=== PATIENT | male | born 1960 | race Two or more races ===

== ENCOUNTER 2016-10-24 06:00 | Inpatient (IN) | payer OTHER ==
[2016-10-24] VITALS (14 sets, daily range): BP systolic 99–121; BP diastolic 57–86
[~2016-10-24] VITALS: Ht 157.5 cm; Wt 81.6 kg
[2016-10-24] MEDS ORDERED: CELEBREX100 MG ORAL (06:47)
[2016-10-24] MEDS ORDERED: METFORMIN HCL500 M1 ORAL (06:54)
[2016-10-24] MEDS ORDERED: Heparin 5000 units/ml inj ONE (07:34)
--- NOTE | 2016-10-24 07:47 | Pre-Procedure Note/Attestation ---
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 I attest that, if there was a reasonable possibility of needing a blood transfusion, the patient (or the patient's legal promotional representative) was given the [place] [employer] standardized written summary, pursuant to the Bruce Shad Blood Safety Act ([place] Health and Safety Code # 1645, as amended). I attest that I re-evaluated the patient just prior to the surgery and that there has been no change in the patient's H&P, except as documented below: Kenneth Allen MD Oct 24, 2016 07:47
--- NOTE | 2016-10-24 08:09 | Anethesia Preoperative Eval ---
Anesthesia Pre-op PMH/ROS General Date of Evaluation: Oct 24, 2016 Time of Evaluation: 07:31 Anesthesiologist: Donato ASA Score: ASA 3 Mallampati Score Class I : Soft palate, uvula, fauces, pillars visible Class II: Soft palate, uvula, fauces visible Class III: Soft palate, base of uvula visible Class IV: Only hard plate visible Mallampati Classification: Class II Surgeon: Alejandro Diagnosis: Back Pain Surgical Procedure: ALIF L4-5, L5-S1, PSF L4-5, L5- S1 Anesthesia History: none Social History: current smoker Family History: no anesthesia problems Allergies: Coded Allergies: No Known Allergies (Unverified , 10/20/16) Medications: see eMAR Past Medical History Pulmonary: Reports: other - Smoker Endocrine: Reports: DM - FBS 99 Other: obesity - BMI 33 PSxH Narrative: L Shoulder Arthroscopy Anesthesia Pre-op Phys. Exam Physician Exam Last Vital Signs Date Time Temp Pulse Resp B/P Pulse Ox O2 Delivery O2 Flow Rate FiO2 10/24/16 07:16 98.0 60 20 117/67 96 Room Air Constitutional: NAD Neurologic: CN 2-12 intact Cardiovascular: RRR Respiratory: CTA Gastrointestinal: S/NT/ND Airway Exam Mallampati Score: Class II MO: limited ROM: limited Teeth: intact Anesthesia Pre-op A/P Risk Assessment & Plan Assessment: ASA 3 Plan: GA, BIS, Glidescope, A Line Status Change Before Surgery: No Pre-Antibiotics Dru Grams Ancef , 80 mg Gentamycin, 200 mg Diflucan IV Given Within 1 Hr of Incision: Yes Time Given: 07:46 Harshad Sewell MD Oct 24, 2016 08:09
[2016-10-24] MEDS ORDERED: LR 1000ml 1,000 ML IVLG SCH (08:21)
[2016-10-24] MEDS ORDERED: Metoclopramide 10mg/2ml Inj IVP PRN ×2 (08:30→18:00)
[2016-10-24] MEDS ORDERED: Midazolam 2mg/2ml Inj IVP PRN (08:30)
[2016-10-24] MEDS ORDERED: Meperidine 25mg/0.5ml Inj IV PRN (08:30)
[2016-10-24] MEDS ORDERED: Oxycodone/Acetaminophen 5-325 ORAL PRN (08:30)
[2016-10-24] MEDS ORDERED: Ketorolac 30mg Inj IV PRN (08:30)
[2016-10-24] MEDS ORDERED: Norco 7.5mg/325mg tab ORAL PRN (08:30)
[2016-10-24] MEDS ORDERED: Atropine Inj 1mg/10ml Syr IV PRN (08:30)
[2016-10-24] MEDS ORDERED: Hydromorphone 0.5mg/0.5ml inj IVP PRN (08:30)
[2016-10-24] MEDS ORDERED: Norco 5mg/325mg tab ORAL PRN (08:30)
[2016-10-24] MEDS ORDERED: DiphenhydrAMINE 50mg/ml Inj IVP PRN ×2 (08:30→18:30)
[2016-10-24] MEDS ORDERED: Ketorolac 60mg Inj IV PRN (08:30)
[2016-10-24] MEDS ORDERED: fentaNYL 100 mcg/2 mL IV PRN (08:30)
[2016-10-24] MEDS ORDERED: LORazepam Inj 2mg/ml 1ml IV PRN (08:30)
[2016-10-24] MEDS ORDERED: Acetaminophen (Non formulary) 100 ML IV ONE (09:00)
[2016-10-24] MEDS ORDERED: Midazolam 2mg/2ml Inj ONE (09:30)
[2016-10-24] MEDS ORDERED: Neostigmine 1mg/ml 10ml Inj ONE (09:30)
[2016-10-24] MEDS ORDERED: NS Irrig 1000ml ONE (09:30)
[2016-10-24] MEDS ORDERED: fentaNYL 250mcg/5ml ONE (09:30)
[2016-10-24] MEDS ORDERED: Propofol 10mg/ml 100ml btl IV ONE (09:30)
[2016-10-24] MEDS ORDERED: Nimbex 2mg/ml Inj 10ML IVP ONE (09:30)
[2016-10-24] MEDS ORDERED: LR 1000ml ONE (09:30)
[2016-10-24] MEDS ORDERED: Lidocaine 1% Plain 30 ml INJ ONE (09:30)
[2016-10-24] MEDS ORDERED: Sterile Water Irrig 1000ml IRRIG ONE (09:30)
[2016-10-24] MEDS ORDERED: Lidocaine 1% MPF 10mg/ml 5ml ONE (09:30)
--- NOTE | 2016-10-24 09:31 | Immediate Post-Op Evaluation ---
Immediate Post-Op Evalulation Immediate Post-Op Evalulation Procedure: ALIF L4-5, L5-S1, PSF L4-5, 5-S1 Date of Evaluation: Oct 24, 2016 Time of Evaluation: 17:29 IV Fluids: 2000 LR Blood Products: 1,000 Alb Estimated Blood Loss: 200 Urinary Output: 350 Blood Pressure Systolic: 107 Blood Pressure Diastolic: 69 Pulse Rate: 78 Respiratory Rate: 16 O2 Sat by Pulse Oximetry: 100 Temperature (Fahrenheit): 97.5 Pain Score (1-10): 3 Nausea: No Vomiting: No Complications Stable Patient Status: awake, reacts, patent, extubated, none Hydration Status: adequate Dru Grams Ancef , 80 mg Gentamycin, 200 mg Diflucan IV Given Within 1 Hr of Incision: Yes Time Given: 07:46 Harshad Sewell MD Oct 24, 2016 09:31
[2016-10-24] MEDS ORDERED: Bupivacaine w/Epi 0.5% 30ml Vial INJ ONE (11:10)
[2016-10-24] MEDS ORDERED: Bupivacaine 0.5% Inj 30 ml vial INJ ONE (11:10)
[2016-10-24] MEDS ORDERED: Thrombin 5000 units TOPIC ONE (11:10)
[2016-10-24] MEDS ORDERED: Bacitracin 50000 Units Vial ONE (11:11)
[2016-10-24] MEDS ORDERED: Gelfoam Absorbable 1gm powder pkt TOPIC ONE ×2 (11:11→15:19)
[2016-10-24] MEDS ORDERED: Thrombin 5000 units spray kit TOPIC ONE ×2 (11:16→15:19)
[2016-10-24] MEDS ORDERED: Bupivacaine 0.25% Inj 30ml INJ ONE (11:33)
[2016-10-24] MEDS ORDERED: Bupivacaine w/Epi 0.25% 30ml Vial INJ ONE (11:33)
[2016-10-24] MEDS ORDERED: Bacitracin Oint 15gm Tube TOPIC ONE (11:55)
[2016-10-24] MEDS ORDERED: Ropivacaine 5mg/ml Vial 20ml INJ ONE (16:46)
[2016-10-24] MEDS ORDERED: Milk of Magnesia 30ml Ud ORAL PRN (18:00)
[2016-10-24] MEDS ORDERED: traMADol 50mg tab ORAL PRN (18:00)
[2016-10-24] MEDS ORDERED: PCA HYDROmorphone 1mg/ml 30 ML IV ONE (18:15)
[2016-10-24] MEDS: PCA HYDROmorphone 1mg/ml 30 ML IV PRN (18:26)
[2016-10-24] MEDS ORDERED: Rate Change PCA 1 Each MISC PRN (18:30)
[2016-10-24] MEDS ORDERED: LORazepam 1mg tab ORAL PRN (18:30)
[2016-10-24] MEDS ORDERED: Naloxone 0.4mg/ml Inj IVP PRN (18:30)
[2016-10-24] MEDS: PCA shift volume MISC SCH (19:00)
[2016-10-24] MEDS ORDERED: NS IVPB ONE (20:30)
[2016-10-24] MEDS ORDERED: GENTAMICIN IVPB ONE (20:30)
[2016-10-24] MEDS: NS w/KCl 20mEq 1,000 ML IV SCH (20:53)
[2016-10-24] MEDS: ceFAZolin sod 2 GM in D5W 110 ML IV SCH (20:53)
[2016-10-24] MEDS: Pericolace tab ORAL SCH (21:00)
[2016-10-25] VITALS: BP 111/64
[2016-10-25] MEDS: ceFAZolin sod 2 GM in D5W 110 ML IV SCH (03:53)
[2016-10-25 04:00] VITALS: BP 100/57
[2016-10-25] MEDS: metFORMIN 500mg tab ORAL SCH ×3 (06:07→17:35)
[2016-10-25 07:24] LABS: BASOPHILS % (AUTO) 0.3 % (0.0-2.0); LYMPHOCYTES % (AUTO) 9.7 % (20.0-45.0); MEAN CORPUSCULAR HEMOGLOBIN 30.1 PG (27.0-31.0); MEAN CORPUSCULAR VOLUME 88 FL (80-99); MEAN PLATELET VOLUME 7.6 FL (6.5-10.1); MONOCYTES % (AUTO) 7.3 % (1.0-10.0); NEUTROPHILS % (AUTO) 82.8 % (45.0-75.0); PLATELET COUNT 159 K/UL (150-450); RED BLOOD COUNT 4.49 M/UL (4.70-6.10); RED CELL DISTRIBUTION WIDTH 11.6 % (11.6-14.8); WHITE BLOOD COUNT 11.1 K/UL (4.8-10.8)
[2016-10-25] MEDS: PCA shift volume MISC SCH ×2 (07:27→19:00)
[2016-10-25 07:51] LABS: ANION GAP 17 (5-15); CALCIUM 8.1 mg/dL (8.6-10.2); CARBON DIOXIDE 23 mEQ/L (20-30); CHLORIDE 99 mEQ/L (98-107); CREATININE 0.9 mg/dL (0.7-1.2); GLOMERULAR FILTRATION RATE > 60 mL/min (>60); HEMOLYSIS 5; MAGNESIUM 1.8 mg/dL (1.7-2.5); POTASSIUM 3.9 mEQ/L (3.4-4.9); SODIUM 139 mEQ/L (135-145)
[2016-10-25 08:00] VITALS: BP 107/56
[2016-10-25] MEDS: Pericolace tab ORAL SCH ×2 (08:37→18:00)
[2016-10-25] MEDS ORDERED: Gentamicin Rx monitoring MISC PRN (10:00)
[2016-10-25] MEDS: NS w/KCl 20mEq 1,000 ML IV SCH ×3 (10:20→23:15)
[2016-10-25] MEDS ORDERED: ceFAZolin sod 2 GM in D5W 110 ML IV SCH (12:00)
[2016-10-25 12:20] VITALS: BP 103/65
--- NOTE | 2016-10-25 15:13 | 48 Hour Post Anesthesia Eval ---
Post Anesthesia Evaluation Procedure: ALIF L4-5, L5-S1, PSF L4-5, 5-S1 Date of Evaluation: Oct 25, 2016 Time of Evaluation: 15:15 Blood Pressure Systolic: 107 0: 56 Pulse Rate: 98 Respiratory Rate: 20 Temperature (Fahrenheit): 98.1 O2 Sat by Pulse Oximetry: 95 Airway: patent Nausea: No Vomiting: No Pain Intensity: 4 If pain is > 6 Comment: Using FUR [employer]Y CLEANER HAND Hydration Status: adequate Cardiopulmonary Status: Stable Mental Status/LOC: patient returned to baseline Follow-up Care/Observations: As per surgery Post-Anesthesia Complications: No anesthetic complication Follow-up care needed: N/A GEGE PARSON M.D. Oct 25, 2016 15:13
--- NOTE | 2016-10-25 16:11 | Diagnostic Imaging Report ---
Indications: Low back and lower extremity pain, lumbar fusion and bone marrow aspiration Technique: The procedures including fluoroscopy performed by Dr. Lewis. Portable intraoperative spot film images of the lumbar spine performed in AP, PA and lateral projections . Portable intraoperative spot film images of one of the iliac crests performed in frontal projection (side and patient position not specified). Findings: Comparison: None Bone biopsy needle overlies the iliac crest on initial view. Subsequent images demonstrate placement of fusion hardware within the L4-5 and L5-S1 disc spaces, placement of bilateral pedicle screws at L4 and S1, bridged by longitudinal rods bilaterally. IMPRESSION: Intraoperative changes as described
[2016-10-25 16:29] VITALS: BP 99/61
--- NOTE | 2016-10-25 17:04 | Diagnostic Imaging Report ---
Indications: Low back pain, status post lumbar fusion Technique: 3 views lumbar spine at 1641 Findings: Comparison: Intraoperative imaging performed earlier today Fusion hardware is again noted within the L4-5 and L5-S1 disc spaces. Multiple surgical clips reside anterior to the lower lumbar spine this level. Bilateral pedicle screws are again noted in L4 and S1, bridged by longitudinal rods bilaterally. Overlying skin pilar. The L5 vertebral body appears subluxed anteriorly on S1 by up to 6 mm. Remainder of vertebral alignment appears intact. The facet joints at L4-5 and L5-S1 appear sclerotic. Small marginal osteophytes at L3-4 without disc space narrowing. Remaining lumbar intervertebral disc spaces unremarkable. T11-12 disc space narrowing with marginal osteophyte formation. Moderate gaseous distention of the colon. IMPRESSION: Status post anterior-posterior fusion L4-S1 L5-S1 grade 1 anterior spondylolisthesis Lower lumbar facet arthropathy Colonic distention likely ileus
[2016-10-25 20:00] VITALS: BP 108/63
--- NOTE | 2016-10-25 20:51 | Brief Operative Note ---
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
--- NOTE | 2016-10-25 20:57 | Orthopedic Spine Progress Note ---
Ortho Spine - Progress Note Subjective Symptoms: c/o post-op back pain, c/o right leg pain, improved Additional Comments: C/O ABDOMINAL BLOATING AND PAIN Objective Vital Signs: Last 24 Hour Vital Signs Date Time Temp Pulse Resp B/P Pulse Ox O2 Delivery O2 Flow Rate FiO2 10/25/16 16:29 98.2 109 20 99/61 97 Room Air 10/25/16 16:00 18 10/25/16 15:49 98.1 10/25/16 15:13 98 20 95 10/25/16 12:20 97.7 77 20 103/65 94 10/25/16 12:00 16 10/25/16 08:00 98.1 98 20 107/56 95 Nasal Cannula 3.0 10/25/16 08:00 20 10/25/16 04:00 97.3 101 19 100/57 94 Room Air 10/25/16 04:00 16 10/25/16 00:00 97.9 87 18 111/64 98 Room Air 10/24/16 21:30 16 10/24/16 21:23 98.0 86 19 115/70 95 Room Air I&O: Intake and Output 10/24/16 10/25/16 Kenneth Allen 19:00 07:00 Intake Total 3500 ml 960 ml Output Total 625 ml 2000 ml Balance 2875 ml -1040 ml Intake Oral 100 ml IV Total 2500 ml 860 ml Blood Product 1000 ml Output Urine Total 425 ml 2000 ml Estimated Blood Loss 200 ml # Voids 1 Wound: dry, intact Drains: none Neuro Status: unchanged from pre-op Additional Comments: C/O RESIDUAL RLE NUMBNESS Assessment Procedure Performed: ALIF L4-5, L5-S1; POSTERIOR MICRODECOMPRESION L4-5, L5-S1; POSTERIOR SPANNING PEDICLE SCREW INSTRUMENTATION BILATERAL @ L4 & S1 Plan Plan: PT Additional Comments: MONITOR ILEUS; CLEAR LIQUIDS; INCREASE IVF; CONTINUE ABX.; GLYCEMIC CONTROL Kenneth Allen MD Oct 25, 2016 20:57
[2016-10-25] MEDS ORDERED: Gentamicin inj 320 MG in NS 110 ML IVPB ONE (21:00)
[2016-10-25] MEDS: NovoLOG Insulin Flexpen SUBQ SCH (21:00)
[2016-10-25] MEDS: PCA HYDROmorphone 1mg/ml 30 ML IV PRN (21:01)
[2016-10-26] VITALS: BP 114/60
[2016-10-26 04:00] VITALS: BP 112/56
[2016-10-26] MEDS: NS w/KCl 20mEq 1,000 ML IV SCH ×2 (05:31→20:53)
[2016-10-26] MEDS: NovoLOG Insulin Flexpen SUBQ SCH ×4 (06:03→20:52)
[2016-10-26] MEDS: PCA shift volume MISC SCH ×2 (07:11→19:27)
[2016-10-26 08:00] VITALS: BP 87/53
[2016-10-26] MEDS: Pericolace tab ORAL SCH ×2 (08:45→17:34)
--- NOTE | 2016-10-26 10:57 | Diagnostic Imaging Report ---
Indication: BK PAIN Technique: IV administration nonionic contrast. Spiral acquisitions obtained through the lumbar spine Multiplanar reconstructions were generated. Total dose length product 745 mGycm. CTDIvol(s) 2 mGy. Radiation dose was minimized using automated exposure control Comparison: None Findings: Patient is status post anterior and posterior fusion. Anterior fusion hardware is seen bridging L4-5 and L5-S1. There are also disc spacers at these levels. There is also posterior fusion hardware, with pedicle screws in the bilateral L4 pedicles, screws within the bilateral sacral wings, and fusion rods connecting them. The hardware appears well aligned. Streak artifact from the hardware obscures the surrounding soft tissues, may obscure pathology. There is a laminotomy defect of the right L4 lamina. There is likewise a laminotomy defect of the right inferior L5 lamina. Retained air from the surgical wound is seen in the posterior soft tissues. A few air bubbles are also seen within the spinal canal. Is also considerable edema of the lumbar region subcutaneous fat, presumably related to the recent surgical exposure. There is a slight degree of infiltration of the prevertebral fat anterior to the fused segments, consistent with routine postsurgical changes. Presacral fat infiltration also extends cephalad along the course of the sacrum. There is evidence of hematoma, ecchymosis, or edema tracking anterior to the left iliac vessels and left iliopsoas muscle. There are associated small air bubbles. This appears small in amount, although may extend beyond the imaging volume. There is slight transitional anatomy of the L5 posterior elements. There are degenerative changes of the bilateral L4-5 facets and of the L5-S1 facets. There is slight anterior offset of L5 on S1. No gross evidence of disc bulge or protrusion, evidence of epidural abscess, or evidence of epidural hematoma. Note, however, at the streak artifact from the hardware severely limits evaluation for such. No definite contrast enhancement. There is degenerative disc narrowing at T11-12. No associated significant disc bulge or protrusion, spinal stenosis, or neural foraminal stenosis. Axial 12 L1, L1-L2, L2-L3, and L3-L4, no significant disc bulge or protrusion, spinal stenosis, or neural foraminal stenosis. There is minimal vacuum formation within the L1-2 disc. The included extraspinal soft tissues are unremarkable. Impression: Postsurgical changes, as described. Evidence of edema or ecchymosis, somewhat lower attenuation favoring the former but the latter not completely excludable, tracking along the left anterior pelvic and spinal musculature, presumably related to recent surgery. Associated air bubbles are presumably related to the recent surgical exposure.. This does not appear to be large in amount, but may extend beyond the imaging volume so may be underestimated. No discrete localized collection to suggest abscess No other gross CT evidence of significant postoperative complication. Note, however, there there is considerable streak artifact from the hardware which could obscure significant pathology. The CT scanner at [facility] is accredited by the [employer] and the scans are performed using protocols designed to limit radiation exposure to as low as reasonably achievable to attain images of sufficient resolution adequate for diagnostic evaluation.
[2016-10-26] MEDS ORDERED: Naloxone 0.4mg/ml Inj IVP PRN ×2 (11:24→12:00)
[2016-10-26] MEDS ORDERED: oxyCONTIN 10mg tab ORAL SCH (11:30)
[2016-10-26] MEDS ORDERED: Rate Change PCA 1 Each MISC PRN ×3 (11:30→12:00)
[2016-10-26 11:39] VITALS: BP 113/71
[2016-10-26] MEDS ORDERED: DiphenhydrAMINE 50mg/ml Inj IVP PRN ×2 (12:00→12:30)
[2016-10-26] MEDS ORDERED: LORazepam 1mg tab ORAL PRN ×2 (12:00→14:30)
[2016-10-26] MEDS: oxyCONTIN 10mg tab ORAL SCH ×2 (12:53→20:53)
[2016-10-26 16:00] VITALS: BP 127/78
--- NOTE | 2016-10-26 16:31 | Diagnostic Imaging Report ---
Indication: PAIN post nasogastric tube placement Technique: Supine view of the abdomen Comparison: none Findings: There is a nasogastric tube in place, tip of which projects at the level gastric fundus, proximal port likely at or above the gastroesophageal junction. There is considerable gas in nondilated large and small bowel. There is evidence of recent spinal fusion surgery. Impression: Somewhat high position of nasogastric tube. Advancement recommended. Patient's nurse notified at the time of interpretation Prominent gas-filled bowel, likely mild postoperative ileus Post surgical changes, as described
[2016-10-26] MEDS ORDERED: Norco 7.5mg/325mg tab ORAL PRN ×2 (18:00)
[2016-10-26] MEDS ORDERED: Norco 5mg/325mg tab ORAL PRN (18:00)
[2016-10-26] MEDS ORDERED: HYDROmorphone 1mg/ml Carpuject IVP PRN (18:00)
[2016-10-26] MEDS ORDERED: PCA HYDROmorphone 1mg/ml 30 ML IV PRN (18:30)
[2016-10-26] MEDS ORDERED: PCA shift volume MISC SCH ×2 (19:00)
[2016-10-26 20:00] VITALS: BP 128/67
[2016-10-27] VITALS: BP 115/53
[2016-10-27] MEDS: PCA HYDROmorphone 1mg/ml 30 ML IV PRN (01:23)
[2016-10-27 04:00] VITALS: BP 135/93
[2016-10-27] MEDS: NS w/KCl 20mEq 1,000 ML IV SCH ×5 (05:15→22:25)
[2016-10-27] MEDS: NovoLOG Insulin Flexpen SUBQ SCH ×4 (06:25→21:00)
[2016-10-27] MEDS: PCA shift volume MISC SCH ×2 (07:10→19:00)
[2016-10-27 08:03] VITALS: BP 131/76
--- NOTE | 2016-10-27 08:35 | Orthopedic Spine Progress Note ---
Ortho Spine - Progress Note Subjective Symptoms: c/o post-op back pain, c/o right leg pain, improved - as compared to pre-op Additional Comments: BM overnite; coffee ground emesis; NGT to continous suction Objective Vital Signs: Last 24 Hour Vital Signs Date Time Temp Pulse Resp B/P Pulse Ox O2 Delivery O2 Flow Rate FiO2 10/27/16 08:03 97.1 105 20 131/76 95 Room Air 10/27/16 04:00 97.5 110 20 135/93 96 Room Air 10/27/16 04:00 16 10/27/16 01:30 16 10/27/16 00:00 99.1 116 20 115/53 100 Room Air 10/27/16 00:00 16 10/26/16 20:00 99.1 109 18 128/67 93 Room Air 10/26/16 20:00 16 10/26/16 16:00 97.9 107 19 127/78 95 Room Air 10/26/16 16:00 18 10/26/16 13:52 98.8 10/26/16 12:00 18 10/26/16 11:39 98.8 98 18 113/71 94 Nasal Cannula 2.0 I&O: Intake and Output 10/26/16 10/27/16 19:00 07:00 Intake Total 3230 ml 200 ml Output Total 1650 ml 250 ml Balance 1580 ml -50 ml Intake Oral 580 ml IV Total 1650 ml 200 ml Blood Product 1000 ml Output Urine Total 1200 ml Gastric Drainage Total 50 ml 250 ml Emesis 200 ml Estimated Blood Loss 200 ml # Voids 2 2 # Bowel Movements 1 Wound: clean, dry Drains: other Neuro Status: normal Assessment Procedure Performed: ALIF L4-5, L5-S1; POSTERIOR MICRODECOMPRESION L4-5, L5-S1; POSTERIOR SPANNING PEDICLE SCREW INSTRUMENTATION BILATERAL @ L4 & S1 Plan Plan: PT, other Additional Comments: will await GI CONSULTATION BY DR. GONZALEZ; CONTINUE NGT AND NPO; LABS Kenneth Allen MD Oct 27, 2016 08:35
--- NOTE | 2016-10-27 08:55 | Diagnostic Imaging Report ---
Indications: Nasogastric tube placement Technique: AP abdomen Findings: Comparison: 10/26/16 Nasogastric tube has been withdrawn, tip in the region of esophagogastric junction, proximal port in the region of the distal thoracic esophagus. Mild to moderate gaseous distention of small bowel and colon persists, unchanged. Surgical changes lower lumbar spine again noted. IMPRESSION: Withdrawal of nasogastric tube, proximal in position as described. Recommend advancement 10-15 cm. Persistent ileus pattern This correlates with [facility] preliminary report.
[2016-10-27] MEDS ORDERED: Pantoprazole Inj IVP SCH (09:00)
[2016-10-27] MEDS: Pericolace tab ORAL SCH ×2 (09:03→17:34)
[2016-10-27] MEDS: oxyCONTIN 10mg tab ORAL SCH ×2 (09:03→22:25)
--- NOTE | 2016-10-27 09:15 | Operative Note - Dictated ---
DATE OF OPERATION: 10/24/2016 VASCULAR SURGEON: Edilberto Santana M.D. SPINE SURGEON: Franklin Allen M.D. PREOPERATIVE DIAGNOSIS: Degenerative disc disease. POSTOPERATIVE DIAGNOSIS: Degenerative disc disease. PROCEDURE PERFORMED: 1. Anterior retroperitoneal exposure of L4-L5 vertebral interspace. 2. Anterior retroperitoneal exposure of L5-S1 vertebral interspace. INDICATIONS: The patient is a very pleasant gentleman, who is seen prior to surgery and is scheduled for anterior fusion at L4-L5 and L5-S1. There is no history of deep venous thrombosis or bleeding complications. He was made aware of the risks of vascular injury, possible need for blood transfusion, and deep venous thrombosis were extensively discussed. DESCRIPTION OF FINDINGS: A vertical midline incision was used and left retroperitoneal approach was used. There is no peritoneal or ureteral violation. There is no vascular injury. Exposure of L4-L5 was obtained by retraction of the left common iliac vessels towards the patient's right. Exposure of L5-S1 vertebral interspace was exposed below the left common iliac vessels and retraction of the left common iliac artery and veins superiorly and laterally. On completion, the peritoneum and ureter were intact, the iliac vessels were intact. BLOOD LOSS: Less than 100 mL. DESCRIPTION OF PROCEDURE: The patient was taken to the operating room. General anesthesia was used. IV antibiotics were given. The patient's abdomen was prepped and draped. Appropriate timeout procedures were taken. A vertical midline incision made infraumbilically. Dissection was carried through the anterior fascia in the midline. A plane was identified posterior to the left rectus abdominis developed posterolaterally to the patient's left. The retroperitoneal space was entered below the arcuate line. The peritoneum and ureter were mobilized towards the patient's right exposing the left common iliac vessels. Dissection was carried to the left side of left common iliac artery and vein. Overlying lymphatics were ligated with vascular clips and divided and this allowed us to expose the anterior surface of L4-L5. The Omni retractor was then placed. Fluoroscopy was used to confirm the appropriate level. Instrumentation performed at L4-L5 was dictated separately. Retractor then repositioned below the iliac bifurcation. Below iliac bifurcation, the middle sacral artery and vein were identified and ligated with vascular clips and divided. This allowed us to retract the soft tissue laterally and exposing the anterior surface of L5-S1. The Omni retractor set in place. Fluoroscopy was used to confirm the appropriate level. On completion, the peritoneum and ureter intact. Iliac vessels were intact. The patient tolerated the procedure well. Anterior fascia was then closed in #1 PDS in running fashion. The skin and subcutaneous tissue were closed using 3-0 Vicryl and 4-0 Monocryl running subcuticular closure technique. Estimated blood loss was less than 100 mL. COMPLICATIONS: None. Edilberto Santana M.D. DR: KEREN JOB#: [id number] CC: ; Bola Ocampo M.D. ; Fax#: [phone]
--- NOTE | 2016-10-27 09:53 | Diagnostic Imaging Report ---
Indications: Nasogastric tube advancement Technique: Portable supine AP abdomen at 1704 Findings: Comparison: 1557 Nasogastric tube has been advanced, tip and proximal port now both in the regions of the stomach. Gaseous distention of small bowel and colon persists, unchanged. No new abnormality identified. IMPRESSION: Advancement of nasogastric tube, in good position
[2016-10-27 11:10] LABS: MEAN CORPUSCULAR HEMOGLOBIN 29.8 PG (27.0-31.0); MEAN CORPUSCULAR HGB CONC 34.3 G/DL (32.0-36.0); MEAN CORPUSCULAR VOLUME 87 FL (80-99); MEAN PLATELET VOLUME 9.5 FL (6.5-10.1); PLATELET COUNT 189 K/UL (150-450); RED BLOOD COUNT 4.32 M/UL (4.70-6.10); RED CELL DISTRIBUTION WIDTH 11.7 % (11.6-14.8); WHITE BLOOD COUNT 16.7 K/UL (4.8-10.8)
[2016-10-27 11:18] LABS: ALANINE AMINOTRANSFERASE 27 U/L (3-41); ALBUMIN/GLOBULIN RATIO 1.1 (1.0-2.7); AMYLASE 62 U/L (10-110); ANION GAP 23 (5-15); ASPARTATE AMINO TRANSFERASE 52 U/L (5-40); CALCIUM 8.6 mg/dL (8.6-10.2); CARBON DIOXIDE 19 mEQ/L (20-30); CHLORIDE 94 mEQ/L (98-107); CREATININE 0.8 mg/dL (0.7-1.2); GLOMERULAR FILTRATION RATE > 60 mL/min (>60); HEMOLYSIS 2; SODIUM 136 mEQ/L (135-145); TOTAL PROTEIN 7.2 g/dL (6.6-8.7)
--- NOTE | 2016-10-27 11:28 | GI Initial Consult Note ---
History of Present Illness General Date patient seen: Oct 27, 2016 Time patient seen: 11:16 Referring physician: PATTI CRONIN Reason for Consultation: POST OPERATIVE ILEUS Present Illness HPI This is a 56 year old male patient with hx of DM s/p ALIF L4-5, L5-S1; POSTERIOR MICRODECOMPRESION L4-5, L5-S1; POSTERIOR SPANNING PEDICLE SCREW INSTRUMENTATION BILATERAL @ L4 & S1for POST-TRAUMATIC G1 SPONDYLOLISTHESIS L4- S1 WITH SPINAL STENOSIS / RADICULOPATHY. GI consulted for post operative ileus. The patient was seen on floor OOB on chair c/o of abdominal distention has has abdominal binder. The patient had a BM this morning and states that he has been passing gas. He presents today with mild leukocytosis. Noted NGT to suction with no active output. The patient denies any history of endoscopic procedures. Home Meds Reported Medications Metformin Hcl* (METFORMIN HCL*) 500 Mg Tablet, 500 MG ORAL TWICE A DAY, TAB 10/24/16 Celecoxib* (CELEBREX*) 100 Mg Capsule, 100 MG ORAL TWICE A DAY, CAP 10/24/16 Med list reviewed/reconciled: Yes Allergies: Coded Allergies: No Known Allergies (Unverified , 10/20/16) Patient History History Provided By: Patient, Medical Record Past Medical History: diabetes Review of Systems All Other Systems: negative except mentioned in HPI Physical Exam Vital Signs Date Time Temp Pulse Resp B/P Pulse Ox O2 Delivery O2 Flow Rate FiO2 10/24/16 07:16 98.0 60 20 117/67 96 Room Air 10/24/16 17:18 6.0 Sp02 EP Interpretation: reviewed Labs Laboratory Tests Test 10/27/16 10:40 White Blood Count 16.7 K/UL (4.8-10.8) H Red Blood Count 4.32 M/UL (4.70-6.10) L Hemoglobin 12.9 G/DL (14.2-18.0) L Hematocrit 37.5 % (42.0-52.0) L Mean Corpuscular Volume 87 FL (80-99) Mean Corpuscular Hemoglobin 29.8 PG (27.0-31.0) Mean Corpuscular Hemoglobin Concent 34.3 G/DL (32.0-36.0) Red Cell Distribution Width 11.7 % (11.6-14.8) Platelet Count 189 K/UL (150-450) Mean Platelet Volume 9.5 FL (6.5-10.1) Neutrophils (%) (Auto) % (45.0-75.0) Lymphocytes (%) (Auto) % (20.0-45.0) Monocytes (%) (Auto) % (1.0-10.0) Eosinophils (%) (Auto) % (0.0-3.0) Basophils (%) (Auto) % (0.0-2.0) Neutrophils % (Manual) Pending Lymphocytes % (Manual) Pending Platelet Estimate Pending Platelet Morphology Pending Sodium Level Pending Potassium Level Pending Chloride Level Pending Carbon Dioxide Level Pending Blood Urea Nitrogen Pending Creatinine Pending Estimat Glomerular Filtration Rate Pending Glucose Level Pending Calcium Level Pending Total Bilirubin Pending Aspartate Amino Transf (AST/SGOT) Pending Alanine Aminotransferase (ALT/SGPT) Pending Alkaline Phosphatase Pending Total Protein Pending Albumin Pending Globulin Pending Amylase Level Pending General Appearance: well appearing, no apparent distress, alert Head: normocephalic EENT: normal ENT inspection Neck: full range of motion Respiratory: normal breath sounds, no respiratory distress Cardiovascular: normal rate Gastrointestinal: normal bowel sounds, non-distended Rectal: deferred Musculoskeletal: back normal Neurologic: alert, oriented x3, responsive Psychiatric: normal inspection, judgement/insight normal, memory normal Skin: normal inspection, normal color, no rash, warm/dry Lymphatic: normal inspection, no adenopathy Current Medications Current Medications Medications (Trade) Dose Ordered Sig/Peter Route PRN Reason Start Time Stop Time Status Last Admin Dose Admin Acetaminophen (Tylenol) 650 mg Q4H PRN ORAL headache or temp>101 10/24/16 18:00 11/23/16 17:59 Acetaminophen/ Hydrocodone Bitart (Creston 5/325) 1 tab Q3H PRN ORAL pain score 1-3 10/28/16 12:00 11/04/16 11:59 Acetaminophen/ Hydrocodone Bitart (Creston 7.5/325) 1 ea Q3H PRN ORAL pain score 4-6 10/28/16 12:00 11/04/16 11:59 Acetaminophen/ Hydrocodone Bitart (Creston 7.5/325) 2 ea Q3H PRN ORAL pain scale 7-10 10/28/16 12:00 11/04/16 11:59 Carisoprodol (Soma) 350 mg THREE TIMES A DAY ORAL 10/25/16 21:00 11/24/16 20:59 10/27/16 09:04 Clotrimazole (Lotrimin) 1 applic THREE TIMES A DAY TOPIC 10/24/16 12:00 11/23/16 11:59 10/27/16 09:03 Dextrose STAT PRN IV Hypoglycemia 10/25/16 20:45 11/24/16 20:44 Diphenhydramine HCl (Benadryl) 25 mg Q6H PRN IVP Itching/Pruritis 10/26/16 12:00 10/28/16 11:59 Hydromorphone HCl (Dilaudid) 1 mg Q2H PRN IVP Breakthrough Pain 10/28/16 12:00 11/04/16 11:59 Hydromorphone HCl (Dilaudid) 2 mg Q3H PRN SUBQ Severe Pain (Pain Scale 7-10) 10/26/16 12:00 10/28/16 11:59 Hydromorphone HCl (Dilaudid) 2 mg Q4H PRN IVP Moderate Pain (Pain Scale 4-6) 10/26/16 12:00 10/28/16 11:59 Hydromorphone HCl (STAMP PRESSER Dilaudid) 30 ml @ 0 mls/hr Q24H PRN IV For Pain 10/26/16 12:00 10/28/16 11:59 10/27/16 01:23 Insulin Aspart (NovoLOG) BEFORE MEALS AND HS SUBQ 10/25/16 21:00 11/24/16 20:59 Lorazepam (Ativan) 1 mg Q4H PRN ORAL Muscle Spasm 10/26/16 12:00 10/28/16 11:59 Magnesium Hydroxide (Mom) 30 ml QIDPRN PRN ORAL Constipation 10/24/16 18:00 11/23/16 17:59 Metformin HCl (Glucophage) 850 mg TIAC ORAL 10/26/16 06:30 11/25/16 06:29 10/26/16 11:58 Metoclopramide HCl (Reglan) 10 mg Q6H PRN IVP Nausea & Vomiting 10/24/16 18:00 11/23/16 17:59 Miscellaneous Medication (STAMP PRESSER Rate Change) 1 ea DAILY PRN MISC rate change 10/26/16 12:00 10/28/16 11:59 Miscellaneous Medication (STAMP PRESSER shift volume) 1 ea Q12HR@0700,1900 MISC 10/26/16 19:00 10/28/16 18:59 10/27/16 07:10 Naloxone HCl (Narcan) 0.1 mg Q1M PRN IVP RR<10/min OR SBP<90 mmHg 10/26/16 12:00 10/28/16 11:59 Ondansetron HCl (Zofran) 4 mg Q6H PRN IVP Nausea & Vomiting 10/26/16 12:00 10/28/16 11:59 Ondansetron HCl 4 mg 4 mg Q6H PRN IVP Nausea & Vomiting 10/28/16 12:00 11/27/16 11:59 Oxycodone HCl (OxyCONTIN) 10 mg Q12HR ORAL 10/26/16 13:00 11/02/16 12:59 10/27/16 09:03 Pantoprazole (Protonix) 40 mg Q12HR IVP 10/27/16 21:00 11/26/16 20:59 Senna/Docusate Sodium (Shelia-Colace) 1 ea TWICE A DAY ORAL 10/24/16 21:00 11/23/16 20:59 10/27/16 09:03 Sitagliptin Phosphate (Januvia) 100 mg ACBREAKFAST ORAL 10/26/16 06:30 11/25/16 06:29 Sodium Chloride (NS w/KCl 20mEq) 1,000 ml @ 125 mls/hr Q8H IV 10/27/16 09:30 11/26/16 09:29 10/27/16 10:35 Temazepam (Restoril) 15 mg HSPRN PRN ORAL Insomnia 10/24/16 18:00 10/31/16 17:59 GI: Plan Problems: (1) Diabetes (2) Postoperative ileus Plan at this time will provide supportive care for patient bowel rest IVF's + electrolyte replacement bowel decompression, ok to dc NGT if patient has no persistent vomiting pain mgmt, minimize opioid use repeat imaging studies fu labs Discussed with Dr. Gonsales. Thank you for referring this patient, we will follow. Katie Gloria N.P. 15, 2017 11:27
[2016-10-27 11:46] LABS: BILIRUBIN,DIRECT 0.4 mg/dL (0.1-0.3)
[2016-10-27 12:30] VITALS: BP 128/91
[2016-10-27 13:35] LABS: LYMPHOCYTES % (MANUAL) 4 % (20-45); NEUTROPHILS % (MANUAL) 90 % (45-75); TOTAL CELLS COUNTED 100
[2016-10-27 13:36] LABS: BAND NEUTROPHILS % (MANUAL) 0 % (0-8); BASOPHILS % (MANUAL) 0 % (0-2); EOSINOPHILS % (MANUAL) 0 % (0-3); PLATELET ESTIMATE ADEQUATE; PLATELET MORPHOLOGY NORMAL
[2016-10-27 16:15] VITALS: BP 128/70
[2016-10-27 20:00] VITALS: BP 130/69
[2016-10-27] MEDS: Pantoprazole Inj IVP SCH (22:25)
--- NOTE | 2016-10-27 22:45 | Operative Note - Dictated ---
DATE OF OPERATION: 10/24/2016 PREOPERATIVE DIAGNOSES: 1. Grade I lumbar spondylolisthesis at L5-S1 (M43.17). 2. Grade I lumbar spondylolisthesis at L4-5 (M43.16). 3. Lumbar spinal stenosis without myelopathy and radiculopathy (M48.06). 4. Lumbar disc prolapse with compression radiculopathy (M51.16). POSTOPERATIVE DIAGNOSES: 1. Grade I lumbar spondylolisthesis at L5-S1 (M43.17). 2. Grade I lumbar spondylolisthesis at L4-5 (M43.16). 3. Lumbar spinal stenosis without myelopathy and radiculopathy (M48.06). 4. Lumbar disc prolapse with compression radiculopathy (M51.16). PROCEDURES: 1. Posterior segmental pedicle screw spinal instrumentation, bilateral at L4 and bilateral at S1. 2. Lumbar spinal cord nerve root decompression with right-sided foraminotomies at L4-5 and L5-S1. 3. Internal neurolysis requiring the use of operative microscope and neuroplasty of the lumbar plexus. 4. Multilayered complex wound closure trunk measuring 4 cm on each side. 5. Use of fluoroscopy and needle placement localization of spine, and professional interpretation of intraoperative fluoroscopic images. 6. Intraoperative neurophysiological testing including baseline and continuous neurostimulation monitoring and pedicle screw stimulation. SURGEON: Kenneth Allen M.D. CERTIFIED MAINTENANCE WELDER: None. ANESTHESIOLOGIST: Harshad Sewell M.D. ANESTHESIA: General. IMPLANTS: 1. [employer] PathFinder NXT cannulated pedicle screw system, 6.5 x 40 mm x2 at the L4 level. 2. [employer] PathFinder NXT cannulated pedicle screw system, 7.5 mm diameter x 40 mm screws x2 at the S1 level. 3. [employer] open implant closure tops. 4. [employer] percutaneous candice system from [employer]Finder measuring 5.5 mm in diameter and 60 mm in length x2. COMPLICATIONS: There were no complications. BLOOD LOSS: About 100 mL. COUNTS: Correct. DESCRIPTION OF PROCEDURE: The patient is a 56-year-old male who has just completed and undergone the first anterior stage portion of his lumbar fusion. He tolerated that well and he is now undergoing the second posterior decompression and pedicle screw instrumentation of the procedure. The patient was repositioned in prone on a four-robotics engineer Fabian frame and table. All pressure point were padded. The lower back was then prepped and draped and isolated in the usual standard sterile fashion. Next, a C-arm fluoroscope was brought into the field, and anatomical landmarks and incisions for the approach were delineated on the skin. Next, under fluoroscopic monitoring and guidance, intra-articular facet injections were performed with 2 mL of 0.25% bupivacaine with epinephrine at the L4-5 and L5-S1 levels bilaterally. Next, lower back was prepped and draped and isolated in the usual standard sterile fashion. Two parasagittal incisions measuring 4 cm each were previously demarcated in order to utilize the Reynaldo paramedian approach were deepened. Dissection was carried down to the dorsal fascia. Hemostasis was achieved with electrocautery. The fascia was then incised sharply and blunt digital dissection was carried to the facet-transverse process-pedicle junction at each level. Under fluoroscopic guidance, the Jamshidi trocar needles were brought into the field and docked at the lateral border of each respective appropriate pedicle. The trocar points were then advanced under biplanar fluoroscopy through the pedicle-vertebral body junction. Flexible Nitinol guidewires were then threaded and cannulated through the trocar points. The trocar needles were then removed. Stimulation of the guidewires was performed using running EMGs and registered above 50 megahertz at each level. Next, a cannulated awl was advanced over the guidewire to remove hard cortical bone and dilate the pedicle introitus. The pedicle channel was then tapped to the appropriate depth and appropriate length pedicle screws were determined. Next, pedicle screws were placed bilaterally at L4 and in the similar fashion at S1. A flexible caliper was used to measure the length of the candice, which translated to a 60 mm candice, which was then placed through the sleeves of the MIS screws and provisions, and then secured to the closure tops x4. Next, the endoscopic tubular retraction system was brought into the field, and an initial guidepin was docked at the right L4 [id number] junction. The sequential dilation was performed up to a 22 mm final working portal, which was secured in place using a tabletop rigid hernandez. Next, advanced endoscopic microsurgical techniques were employed to debride and partially resect the facet capsule on the right side. A hemilaminectomy was also performed. The medial facet capsule, which was continues with a markedly thickened ligamentum flavum causing significant compression and stenosis of the common dural sac as well as the exiting traversing nerve root was then excised and resected using a variety of Kerrison punches and microcurettes. The retractor was then adjusted and redirected and then further central decompression was undertaken with the aid of a high-power surgical microscope. No dural defects were noted after the decompression. A sustained Valsalva maneuver to 40 mmHg pressure did not reveal any evidence of cerebrospinal fluid leak. In the similar fashion, the L5-S1 level was also decompressed on the right side after the direction of replacement of the tubular retractor system. Final counts were obtained and found to be correct. The wounds were irrigated and then 1 g of Ancef was then sprayed on each side directly over the hardware. A multilayered closure was undertaken using #1 Vicryl, 0 Vicryl, 2-0 Vicryl, and pilar for the skin. The patient tolerated the procedure well. He was transferred to recovery room in stable condition. He was grossly neurovascularly intact. Kenneth Allen M.D. DR: RAYMOND JOB#: [id number] CC:
[2016-10-27 23:07] LABS: APPEARANCE,URINE CLEAR; KETONES,URINE 4+ (NEGATIVE); LEUKOCYTE ESTERASE ,URINE NEGATIVE (NEGATIVE); NITRITE,URINE NEGATIVE (NEGATIVE); PH,URINE 5 (4.5-8.0); PROTEIN,URINE 2+ (NEGATIVE); UROBILINOGEN,URINE NORMAL MG/DL (0.0-1.0)
[2016-10-27 23:19] LABS: BACTERIA,URINE FEW /HPF; RBC,URINE 30-40 /HPF (0 - 0); SQUAMOUS EPITHELIAL CELL,UR FEW /LPF (NONE/OCC); WBC,URINE 0-2 /HPF (0 - 0)
[2016-10-28] VITALS: BP 122/80
--- NOTE | 2016-10-28 00:15 | Operative Note - Dictated ---
DATE OF OPERATION: 10/24/2016 SURGEON: Kenneth Allen M.D. VASCULAR SPINE ACCESS SURGEON: Edilberto Santana M.D. ANESTHESIOLOGIST: Harshad Sewell M.D. ANESTHESIA: General endotracheal. PREOPERATIVE DIAGNOSES: 1. Lumbar grade 1 spondylolisthesis at L5-S1 dynamic (M43.17). 2. Lumbar spondylolisthesis grade 1 at L4-L5 dynamic (M43.16). 3. Lumbar spinal stenosis without myelopathy with radiculopathy (M48.06). 4. Lumbar disk prolapse with compression radiculopathy (M51.16). POSTOPERATIVE DIAGNOSES: 1. Lumbar grade 1 spondylolisthesis at L5-S1 dynamic (M43.17). 2. Lumbar spondylolisthesis grade 1 at L4-L5 dynamic (M43.16). 3. Lumbar spinal stenosis without myelopathy with radiculopathy (M48.06). 4. Lumbar disk prolapse with compression radiculopathy (M51.16). PROCEDURES: 1. Anterior rectus sparing retroperitoneal approach to the lumbar spine at the L4-L5 and L5-S1 levels with mobilization of the great vessels and peritoneal contents including the ureter. 2. Anterior lumbar complete diskectomy interbody arthrodesis/fusion at L4-L5 and L5-S1. 3. Anterior spinal instrumentation at L4-L5 and L5-S1 consisting of a plate and screw construct. 4. Placement and application of an intervertebral biomechanical cage at L4-L5 and L5-S1. 5. Right iliac crest bone graft major. 6. Use of structural allograft in spinal surgery. 7. Use of the high-powered surgical microscope. 8. Intraoperative fluoroscopy with professional interpretation of the images. 9. Intraoperative neurophysiological monitoring. 10. Multilayered complex closure measuring 9 cm. COMPLICATIONS: None. SPECIMENS: Include L4-L5 and L5-S1 disk fragments. INDICATIONS: The patient is a 56-year-old, [id number] male, who sustained injuries to his lumbar spine as a result of a workplace accident where a heavy fence weighing excess of a few 1000 pounds incarcerated and pinned him. In this course period of time, he sustained the resulting injuries to his left shoulder as well as his lumbar spine. He has already had his shoulder pathology addressed, which required an arthroscopic decompression rotator cuff repair. He has now recovered from this procedure. However, he has noted persistent and symptomatic pain. This is refractory to all conservative measures including an extended and protracted period of rest and physical therapy, lumbar pain management procedures as well as use of multimodal medication regimen. He is requesting definitive management. The patient underwent appropriate preoperative staging studies including MRI and CT scan, which revealed a dynamic grade 1 spondylolisthesis at L4-L5 and L5-S1 causing severe bilateral foraminal stenosis, right greater than left. He was brought to the operating room for definitive management. The risks, benefits, and potential complications of surgery were fully explained in detail to the patient and his , which include, but certainly not limited to, bleeding, infection, nerve or vessel damage, scarring, persistent pain, risks of anesthesia, possible , possible need for further surgical intervention, iatrogenic instability, epidural hematoma, failure of implants and hardware, misplacement of implants and hardware, migration of implants and hardware, bowel injury, ileus, bladder injury, heart attack, stroke, massive bleeding, deep venous thrombosis, pulmonary embolism, spinal cord and nerve damage, reflex sympathetic dystrophy, sexual dysfunction, positioning problems, brachial plexus injuries, traction injuries, swallowing difficulties, problems with vocal cords, airway obstruction, postoperative swelling, need for prolonged intubation, persistent dural fistula, need for further surgery, paralysis, blindness, possible long level surgery, no relief of current symptoms, possible development of new symptoms, possible worsening of symptoms, possible need for intraoperative change in procedures, possible need for fusion of the adjacent levels in the future, and other risks are not named above. The patient also understands the risk that the use of the bone morphogenic protein constitutes and minute risk for retrograde ejaculation and he has accepted this risk. The patient understands that this has been FDA approved for use in instability surgery. PROCEDURE: The patient was reexamined and reassessed in the preoperative holding area and the procedure was ascertained. His neurologic exam remained unchanged. He continued to manifest severe right lower extremity radiculopathy and mild to moderate left lower extremity radiculopathy. Written informed consent was obtained. Appropriate levels were demarcated on the skin. The patient was then transported to the operating room and placed supine on the operating room table. Next, general endotracheal anesthesia was induced by Dr. Sewell, the anesthesiologist staff. A surgical time-out was conducted according to universal protocol. It was verified the appropriate implants are available. Appropriate preoperative intravenous antibiotics in the form of 2 g of Ancef and 80 mg of gentamicin were administered. The indwelling Che catheter was placed with some difficulty due to altered visual anatomy. The C-arm fluoroscope was brought into the field and the appropriate anatomical landmarks and incisions for the approach were delineated on the skin. The abdomen was prepped, draped, and isolated in usual standard sterile fashion. Initially, our attention was focused on to the right iliac crest. Under fluoroscopic guidance, a 2.5 cm incision was made and using a cannulated bone harvester, multiple cores of corticocancellous structure graft was obtained. The channels were then backfilled with the use of FloSeal and the periosteum was infiltrated with 0.25% Marcaine with epinephrine. A 3-0 Vicryl and 2-0 nylon sutures were used to reapproximate the skin. The sterile dressings were applied. At this point, midline auxiliary infraumbilical incision was made by Dr. Santana for the approach. This would be dictated on a separate cover. However briefly, a dissection was carried down to the posterior rectus sheath and arcuate line. A retroperitoneal fat was localized. The peritoneal contents including the ureter encountered and then safely diverted and retracted all the way. Appropriate retractors were placed initially at the L4-L5 level after dissection and ligation of the left iliolumbar vein. Once the exposure was optimized, a combination of #11 and #10 scalpel blade was used to perform a wide annulotomy. Subperiosteal dissection of the disk was undertaken using variable angled Hanley elevators at the endplates. Using a variable combination of disk space distractors, further debridement of the cartilage was undertaken using variable angled curettes under fluoroscopic visualization. The posterior anulus was encountered and both levels are maintained. After good bleeding endplates were changed without violation of the subchondral plate, the disk spaces were irrigated thoroughly with dual impregnated antibiotic solution and suctioned dry. FloSeal was used to control epidural bleeding if any. At the L4-L5 level, trial implants from [employer] system were brought into the field and a 40 mm wide, 12 mm high, and 30 mm deep and 10 degree lordotic implant was provided for best coverage and roman catholic of the lordosis. This implant was then opened onto the field and impacted with a composite graft of bone marrow aspirate. Half of the extra small packet of BMP as well as autogenous bone and allograft of Nova bone. Under fluoroscopic guidance, this was then impacted into place to the appropriate depth. Next, the [employer] plate and screw system were brought into the field and then two 5.0 mm diameter x 35 mm length screws were used to transfix the cage and the plate was secured to the L4 vertebral body, followed by application of additional two 35 mm screws into the L5 vertebral body. Once the construct was secured, the disk space was sealed with the use of Tisseel fibrin glue sealant in order to prevent extravasation of the bone graft material into the retroperitoneal space. At this point, the retractors were readjusted to optimize exposure of the L5-S1 disk space. In a similar fashion, a wide annulotomy was undertaken, followed by a subperiosteal dissection of the cartilaginous endplate. Final debridement and lateral mobilization of the disk space with partial lateral . Once the disk space was irrigated and all disk material was evacuated, anterior foraminotomies were performed. Hemostasis was achieved using FloSeal. Next, a trial of 40 mm wide, 30 mm deep, and 12 mm height, 15 degree lordotic cage from [employer] system provided the best fit and fill. The trial was then removed and the actual implant was then packed with composite bone graft and then under fluoroscopic guidance, it was then impacted into place with excellent purchase. In a similar fashion, Medacta plate and screw construct was used with two 35 mm screws at L5 and two 30 mm screws at S1. The disk space was then also sealed in a watertight fashion using Tisseel fibrin glue. A 1 g of Ancef powder was then sprayed over the hardware and the retropatellar space. Additional inspection was performed to localize any bleeders. The wound was then reapproximated using #1 Vicryl, #2-0 Vicryl and 3-0 Vicryl and pilar for the skin. The patient tolerated the procedure well and was then prepped to undergo the staged posterior portion, which we dictated under separate cover. Kenneth Allen M.D. DR: JANY JOB#: [id number] CC:
[2016-10-28] MEDS: PCA HYDROmorphone 1mg/ml 30 ML IV PRN (01:12)
[2016-10-28 04:00] VITALS: BP 123/68
[2016-10-28] MEDS: NS w/KCl 20mEq 1,000 ML IV SCH (05:29)
[2016-10-28] MEDS: NovoLOG Insulin Flexpen SUBQ SCH ×4 (06:30→21:00)
[2016-10-28 07:05] LABS: ANION GAP 17 (5-15); CARBON DIOXIDE 21 mEQ/L (20-30); CHLORIDE 99 mEQ/L (98-107); CREATININE 0.6 mg/dL (0.7-1.2); GLOMERULAR FILTRATION RATE > 60 mL/min (>60); HEMOLYSIS 0; MAGNESIUM 1.9 mg/dL (1.7-2.5); POTASSIUM 3.6 mEQ/L (3.4-4.9); SODIUM 137 mEQ/L (135-145)
[2016-10-28 07:17] LABS: BASOPHILS % (AUTO) 0.9 % (0.0-2.0); EOSINOPHILS % (AUTO) 0.8 % (0.0-3.0); LYMPHOCYTES % (AUTO) 9.6 % (20.0-45.0); MEAN CORPUSCULAR HEMOGLOBIN 30.9 PG (27.0-31.0); MEAN CORPUSCULAR HGB CONC 34.5 G/DL (32.0-36.0); MEAN CORPUSCULAR VOLUME 90 FL (80-99); NEUTROPHILS % (AUTO) 80.7 % (45.0-75.0); PLATELET COUNT 174 K/UL (150-450); RED BLOOD COUNT 3.64 M/UL (4.70-6.10); RED CELL DISTRIBUTION WIDTH 11.6 % (11.6-14.8); WHITE BLOOD COUNT 10.7 K/UL (4.8-10.8)
[2016-10-28] MEDS: PCA shift volume MISC SCH (07:18)
[2016-10-28 08:00] VITALS: BP 129/78
[2016-10-28] MEDS: Pantoprazole Inj IVP SCH ×2 (08:45→21:00)
[2016-10-28] MEDS: Pericolace tab ORAL SCH ×2 (08:49→17:31)
[2016-10-28] MEDS: oxyCONTIN 10mg tab ORAL SCH ×4 (08:49→21:06)
--- NOTE | 2016-10-28 10:31 | GI Progress Note ---
Assessment/Plan Problems: (1) Postoperative ileus ICD Codes: K91.89 - Other postprocedural complications and disorders of digestive system; K56.7 - Ileus, unspecified SNOMED: 838623710 (2) Diabetes ICD Codes: E11.9 - Type 2 diabetes mellitus without complications SNOMED: 32118380 Status: progressing Status Narrative Discussed with Dr. Gonsales. Assessment/Plan supportive care will dc NGT today, adv to CLD bowel rest IVF's + electrolyte replacement bowel decompression pain mgmt, minimize opioid use repeat imaging studies fu labs Subjective Gastrointestinal/Abdominal: Reports: abdomen distended - improving Subjective passing BM Objective Last 24 Hour Vital Signs Date Time Temp Pulse Resp B/P Pulse Ox O2 Delivery O2 Flow Rate FiO2 10/28/16 09:49 98.5 10/28/16 08:00 99.1 95 20 129/78 99 Room Air 10/28/16 08:00 18 10/28/16 04:00 98.5 100 18 123/68 95 Room Air 10/28/16 04:00 18 10/28/16 01:42 98.6 10/28/16 01:00 18 10/28/16 00:00 18 10/28/16 00:00 98.2 101 18 122/80 98 Room Air 10/27/16 20:00 18 10/27/16 20:00 98.6 102 20 130/69 98 Room Air 10/27/16 16:15 98.4 99 20 128/70 96 Room Air 10/27/16 16:00 18 10/27/16 12:30 98.4 100 20 128/91 97 Room Air 10/27/16 12:00 16 Intake and Output 10/27/16 10/28/16 19:00 07:00 Intake Total 2282.5 ml 1225 ml Output Total 400 ml 540 ml Balance 1882.5 ml 685 ml Intake Oral 1220 ml IV Total 1062.5 ml 1225 ml Output Urine Total 150 ml 440 ml Gastric Drainage Total 250 ml 100 ml # Voids 3 4 # Bowel Movements 2 1 Laboratory Tests Test 10/27/16 10:40 10/27/16 21:45 10/28/16 06:20 White Blood Count 16.7 K/UL (4.8-10.8) H 10.7 K/UL (4.8-10.8) Red Blood Count 4.32 M/UL (4.70-6.10) L 3.64 M/UL (4.70-6.10) L Hemoglobin 12.9 G/DL (14.2-18.0) L 11.3 G/DL (14.2-18.0) L Hematocrit 37.5 % (42.0-52.0) L 32.7 % (42.0-52.0) L Mean Corpuscular Volume 87 FL (80-99) 90 FL (80-99) Mean Corpuscular Hemoglobin 29.8 PG (27.0-31.0) 30.9 PG (27.0-31.0) Mean Corpuscular Hemoglobin Concent 34.3 G/DL (32.0-36.0) 34.5 G/DL (32.0-36.0) Red Cell Distribution Width 11.7 % (11.6-14.8) 11.6 % (11.6-14.8) Platelet Count 189 K/UL (150-450) 174 K/UL (150-450) Mean Platelet Volume 9.5 FL (6.5-10.1) 7.0 FL (6.5-10.1) Neutrophils (%) (Auto) % (45.0-75.0) 80.7 % (45.0-75.0) H Lymphocytes (%) (Auto) % (20.0-45.0) 9.6 % (20.0-45.0) L Monocytes (%) (Auto) % (1.0-10.0) 8.0 % (1.0-10.0) Eosinophils (%) (Auto) % (0.0-3.0) 0.8 % (0.0-3.0) Basophils (%) (Auto) % (0.0-2.0) 0.9 % (0.0-2.0) Differential Total Cells Counted 100 Neutrophils % (Manual) 90 % (45-75) H Lymphocytes % (Manual) 4 % (20-45) L Monocytes % (Manual) 6 % (1-10) Eosinophils % (Manual) 0 % (0-3) Basophils % (Manual) 0 % (0-2) Band Neutrophils 0 % (0-8) Platelet Estimate Adequate Platelet Morphology Normal Sodium Level 136 mEQ/L (135-145) 137 mEQ/L (135-145) Potassium Level 4.0 mEQ/L (3.4-4.9) 3.6 mEQ/L (3.4-4.9) Chloride Level 94 mEQ/L (98-107) L 99 mEQ/L (98-107) Carbon Dioxide Level 19 mEQ/L (20-30) L 21 mEQ/L (20-30) Anion Gap 23 (5-15) H 17 (5-15) H Blood Urea Nitrogen 16 mg/dL (7-23) 14 mg/dL (7-23) Creatinine 0.8 mg/dL (0.7-1.2) 0.6 mg/dL (0.7-1.2) L Estimat Glomerular Filtration Rate > 60 mL/min (>60) > 60 mL/min (>60) Glucose Level 105 mg/dL (74-106) 97 mg/dL (74-106) Calcium Level 8.6 mg/dL (8.6-10.2) 8.0 mg/dL (8.6-10.2) L Total Bilirubin 2.2 mg/dL (0.0-1.2) H Direct Bilirubin 0.4 mg/dL (0.1-0.3) H Aspartate Amino Transf (AST/SGOT) 52 U/L (5-40) H Alanine Aminotransferase (ALT/SGPT) 27 U/L (3-41) Alkaline Phosphatase 51 U/L (40-129) Total Protein 7.2 g/dL (6.6-8.7) Albumin 3.8 g/dL (3.5-5.2) Globulin 3.4 g/dL Albumin/Globulin Ratio 1.1 (1.0-2.7) Amylase Level 62 U/L (10-110) Urine Color Pale yellow Urine Appearance Clear Urine pH 5 (4.5-8.0) Urine Specific [place] 1.015 (1.005-1.035) Urine Protein 2+ (NEGATIVE) H Urine Glucose (UA) 4+ (NEGATIVE) H Urine Ketones 4+ (NEGATIVE) H Urine Occult Blood 4+ (NEGATIVE) H Urine Nitrite Negative (NEGATIVE) Urine Bilirubin Negative (NEGATIVE) Urine Urobilinogen Normal MG/DL (0.0-1.0) Urine Leukocyte Esterase Negative (NEGATIVE) Urine RBC 30-40 /HPF (0 - 0) H Urine WBC 0-2 /HPF (0 - 0) Urine Squamous Epithelial Cells Few /LPF (NONE/OCC) Urine Bacteria Few /HPF (NONE) Magnesium Level 1.9 mg/dL (1.7-2.5) Height (Feet): 5 Height (Inches): 2.00 Weight (Pounds): 180 General Appearance: no apparent distress, alert Cardiovascular: normal rate Respiratory/Chest: normal breath sounds, no respiratory distress Abdominal Exam: normal bowel sounds, soft, distended Katie Gloria N.P. Oct 28, 2016 10:30
[2016-10-28] MEDS: celeBREX 200mg Cap **SURGERY PATIENTS ONLY ORAL SCH (10:52)
[2016-10-28 12:00] VITALS: BP 133/80
[2016-10-28] MEDS ORDERED: Norco 7.5mg/325mg tab ORAL PRN ×2 (12:00)
[2016-10-28] MEDS ORDERED: HYDROmorphone 1mg/ml Carpuject IVP PRN (12:00)
[2016-10-28] MEDS ORDERED: Norco 5mg/325mg tab ORAL PRN (12:00)
[2016-10-28 16:00] VITALS: BP 114/68
--- NOTE | 2016-10-28 16:12 | Discharge Summary ---
Discharge Summary Hospital Course Date of Admission Oct 24, 2016 at 06:00 Date of Discharge october 29, 2016 Admitting Diagnosis HPI Kenn Núñez is a 56 year old male who was admitted on Oct 24, 2016 at 06:00 for Severe Facet Arthropathy L4-5 Consultations gastroenterology Procedures ALIF L4-5, L5-S1 PSI MICRODECOMPRESSION L4-S1 Hospital Course COMPLICATED BY POSTOP ILEUS REQUIRING NASOGASTRIC TUBE Discharge Condition Upon Discharge: stable Discharge Disposition Patient was discharged to HOME Discharge Diagnoses: (1) Lumbar disc prolapse with root compression (2) Spondylolisthesis of lumbosacral region (3) Spinal stenosis of lumbar region with radiculopathy (4) [id number] diabetes mellitus without complications (5) Diabetes (6) Postoperative ileus Kenneth Allen MD Oct 28, 2016 16:12
[2016-10-28] MEDS ORDERED: NORCO 10-325 T1 EACH ORAL ×6 (19:37→19:41)
[2016-10-28] MEDS ORDERED: LEVOFLOXACIN500 MG ORAL (19:43)
[2016-10-28] MEDS ORDERED: ASPIRIN EC325 MG ORAL (19:45)
[2016-10-28] MEDS ORDERED: GLYXAMBI 25 MG1 EACH PO (19:46)
[2016-10-28 20:36] VITALS: BP 121/85
[2016-10-29 00:54] VITALS: BP 120/80
[2016-10-29 04:00] VITALS: BP 128/60
[2016-10-29] MEDS: NovoLOG Insulin Flexpen SUBQ SCH ×2 (05:54→11:30)
[2016-10-29 06:40] LABS: BASOPHILS % (AUTO) 2.2 % (0.0-2.0); MEAN CORPUSCULAR HEMOGLOBIN 32.3 PG (27.0-31.0); MEAN CORPUSCULAR HGB CONC 35.8 G/DL (32.0-36.0); MEAN CORPUSCULAR VOLUME 90 FL (80-99); MONOCYTES % (AUTO) 8.5 % (1.0-10.0); NEUTROPHILS % (AUTO) 67.3 % (45.0-75.0); PLATELET COUNT 216 K/UL (150-450); RED BLOOD COUNT 3.93 M/UL (4.70-6.10); RED CELL DISTRIBUTION WIDTH 11.5 % (11.6-14.8); WHITE BLOOD COUNT 8.8 K/UL (4.8-10.8)
[2016-10-29 07:11] LABS: ANION GAP 15 (5-15); CALCIUM 8.4 mg/dL (8.6-10.2); CARBON DIOXIDE 26 mEQ/L (20-30); CHLORIDE 95 mEQ/L (98-107); CREATININE 0.7 mg/dL (0.7-1.2); GLOMERULAR FILTRATION RATE > 60 mL/min (>60); HEMOLYSIS 1; SODIUM 136 mEQ/L (135-145)
[2016-10-29 08:08] VITALS: BP 112/68
[2016-10-29] MEDS: Pericolace tab ORAL SCH (08:57)
[2016-10-29] MEDS: celeBREX 200mg Cap **SURGERY PATIENTS ONLY ORAL SCH (08:57)
[2016-10-29] MEDS: oxyCONTIN 10mg tab ORAL SCH (08:58)
[2016-10-29] MEDS: Pantoprazole Inj IVP SCH (09:00)
[2016-10-29] MEDS ORDERED: Levofloxacin 500mg tab ORAL SCH (09:00)
[2016-10-29] MEDS ORDERED: NS 275ml ONE (09:42)
[2016-10-29] MEDS ORDERED: Tubing IV Secondary IV ONE ×2 (09:42→09:55)
[2016-10-29 11:56] VITALS: BP 124/61
--- NOTE | 2016-10-31 22:41 | Diagnostic Imaging Report ---
APPROVED REPORT CPT Code: 83667 Present Symptoms Comments: Pain and swelling BILATERAL: Imaging reveals a patent deep venous system bilaterally. There is no evidence of thrombus within the femoral, popliteal or tibial segments. The greater saphenous veins are also within normal limits. Doppler indicates normal spontaneous flow within these segments.
== END 2016-10-29 11:45 | disposition home or self-care (01) | DRG 460 ==
LOC: SDSOVERFLO 06:00 → 3E 19:13
PROC: 0SG00A0 Fusion of Lumbar Vertebral Joint with Interbody Fusion Device, Anterior Approach, Anterior Column, Open Approach (ICD-10-PCS; principal; 2016-10-24 07:30)
PROC: 0QB20ZZ Excision of Right Pelvic Bone, Open Approach (ICD-10-PCS; principal; 2016-10-24 07:30)
PROC: 0SG30A0 Fusion of Lumbosacral Joint with Interbody Fusion Device, Anterior Approach, Anterior Column, Open Approach (ICD-10-PCS; principal; 2016-10-24 07:30)
PROC: 00NY0ZZ Release Lumbar Spinal Cord, Open Approach (ICD-10-PCS; principal; 2016-10-24 07:30)
PROC: 4A11X4G Monitoring of Peripheral Nervous Electrical Activity, Intraoperative, External Approach (ICD-10-PCS; principal; 2016-10-24 07:30)
PROC: 0ST40ZZ Resection of Lumbosacral Disc, Open Approach (ICD-10-PCS; principal; 2016-10-24 07:30)
PROC: 0ST20ZZ Resection of Lumbar Vertebral Disc, Open Approach (ICD-10-PCS; principal; 2016-10-24 07:30)
DX: M51.16 Intervertebral disc disorders with radiculopathy, lumbar region (principal); K56.7 Ileus, unspecified; M43.16 Spondylolisthesis, lumbar region; M48.06 Spinal stenosis, lumbar region; E11.9 Type 2 diabetes mellitus without complications; D72.829 Elevated white blood cell count, unspecified; K91.89 Other postprocedural complications and disorders of digestive system; M43.17 Spondylolisthesis, lumbosacral region
CPT/HCPCS: 36415; 72020; 72132; 74000; 76001; 80048; 80053; 81001; 82150; 82248; 82962; 83735; 85007; 85025; 86850; 86900; 86901; 87081; 87086; 87181; 93970; 94003; 94150; C9399; J1815; J2250; J2405; J2710